=== PATIENT | male | born 1995 | race Two or more races ===

== ENCOUNTER 2017-04-20 13:08 | Day surgery (SDC) | payer OTHER ==
[2017-04-20] MEDS ORDERED: FENTAnyl 50 MCG/ML VIAL (15:34)
[2017-04-20] MEDS ORDERED: MIDAZOLAM 1 MG/ML 2 ML INJ ×3 (15:34)
== END 2017-04-20 16:07 | disposition home or self-care (01) ==
LOC: GIL 13:08
DX: K20.9 Esophagitis, unspecified (principal); K29.70 Gastritis, unspecified, without bleeding
CPT/HCPCS: 43239; 88305; 88312